=== PATIENT | female | born 1970 | race Caucasian/White ===

== ENCOUNTER 2025-04-13 17:56 | Emergency (ER) | payer OTHER ==
[2025-04-13] MEDS: Bacitracin Oint 1 GM U/D Packet TOP ONE (19:29)
[2025-04-13] MEDS: Lidocaine 1% with EPINEPHrine 1:100,000 20 ML MDV INJECT ONE (19:29)
[2025-04-13] MEDS: Rabies Vaccine (Avian) 2.5 Unit Inj Kit IM ONE (19:30)
== END 2025-04-13 19:38 | disposition home or self-care (01) ==
LOC: JP.ED 17:56
DX: S91.312A Laceration without foreign body, left foot, initial encounter (principal); Z23 Encounter for immunization; W26.8XXA Contact with other sharp object(s), not elsewhere classified, initial encounter
CPT/HCPCS: 12001; 90471; 90675; 99282; J2004